=== PATIENT | female | born 2005 | race Caucasian/White ===

== ENCOUNTER 2024-07-26 00:38 | Emergency (ER) | payer BC ==
[2024-07-26 00:39] VITALS: TEMP 97.1
[2024-07-26] MEDS ORDERED: NS 1,000 ML IV ONE (01:00)
[2024-07-26] MEDS ORDERED: Ondansetron 4 MG/2 ML VIAL IV ONE (01:00)
[2024-07-26 01:02] LABS: BASO # 0.1 K/mm3 (0.0-0.2); BASO % 0.6 % (0.0-2.0); EOS # 0.1 K/mm3 (0.0-0.7); EOS % 0.5 % (0.0-4.0); GRAN # 6.4 K/mm3 (1.4-6.5); GRAN % 63.9 % (42.2-75.2); HEMOGLOBIN 10.1 g/dl (12.0-15.0); LYMPH % 29.6 % (20.0-51.0); MEAN CELL VOLUME 69 fl (80.0-95.0); MEAN CORPUSCULAR HEMOGLOBIN 20 pg (26-32); MEAN CORPUSCULAR HGB CONC 29 g/dl (33.0-37.0); MEAN PLATELET VOLUME 9.1 fl (7.4-10.4); MONO # 0.5 K/mm3 (0.1-0.6); MONO % 5.1 % (1.7-9.3); PLATELET COUNT 267 K/mm3 (130-400); REDCELL DISTRIBUTION WIDTH-CV 18.8 % (11.5-14.5)
[2024-07-26 01:03] LABS: HEMATOCRIT 34.7 % (35.0-45.0)
[2024-07-26 01:17] LABS: BILIRUBIN,TOTAL 0.3 mg/dL (0.2-1.2); CALCIUM 8.8 mg/dL (8.4-10.2); CREATININE, serum 0.9 mg/dL (0.57-1.11); TOTAL PROTEIN 7.7 g/dl (6.2-8.1)
[2024-07-26 01:22] LABS: POTASSIUM 2.9 mEq/L (3.5-4.5)
[2024-07-26 06:06] VITALS: BP 128/70; PULSE 75
== END 2024-07-26 06:06 | disposition home or self-care (01) ==
LOC: COL.ER 00:38
PROVIDERS: Nurse Practitioner
DX: F10.129 Alcohol abuse with intoxication, unspecified (principal); Y90.8 Blood alcohol level of 240 mg/100 ml or more
CPT/HCPCS: J2405; J7030